=== PATIENT | female | born 1995 | race Caucasian/White ===

== ENCOUNTER 2019-08-20 18:32 | Inpatient (IN) ==
[2019-08-20] MEDS ORDERED: Ringers Solution, Lactated 1,000 ML ONE (18:57)
[2019-08-20] MEDS ORDERED: EPHEDrine 50 MG/ML VIAL IVP PRN (19:04)
[2019-08-20] MEDS ORDERED: Metoclopramide 10 MG/2 ML VIAL IVP PRN (19:05)
[2019-08-20] MEDS ORDERED: Lidocaine 1% 20 ML MDV INFILT PRN (19:05)
[2019-08-20] MEDS ORDERED: Famotidine 20 MG/2 ML VIAL IVP PRN (19:05)
[2019-08-20] MEDS ORDERED: Naloxone 0.4 MG/ML INJ IVP PRN (19:05)
[2019-08-20] MEDS ORDERED: *HR* FentaNYL (PF) 100 MCG/2 ML VIAL IVP PRN (19:05)
[2019-08-20] MEDS ORDERED: miSOPROStoL 25 MCG TABLET PO PRN (19:12)
[2019-08-20] MEDS ORDERED: Ringers Solution, Lactated 1,000 ML IVC SCH (19:15)
[2019-08-20] MEDS ORDERED: Epidural Premix (fent/bupiv) 110 ML EP SCH (19:15)
[2019-08-20 19:49] LABS: Basophils % 0.1 %; Eosinophils % 0.2 %; Hematocrit 41.3 % (35.3-44.9); Hemoglobin 13.8 g/dL (11.5-15.4); Immature Granulocytes % 0.6 % (0-4); Lymphocytes # 2.4 K/mcL (0.6-4.6); Lymphocytes % 14.2 %; Mean Corpuscular HGB Conc 33.4 g/dL (31.6-35.5); Mean Corpuscular Hemoglobin 30.9 pg (28.0-33.3); Mean Corpuscular Volume 92.4 fL (83.0-100.0); Mean Platelet Volume 11.5 fL (9.4-12.4); Monocytes # 0.7 K/mcL (0.0-1.3); Monocytes % 3.8 %; Neutrophils # 13.8 K/mcL (1.6-8.9); Platelet Count 230 K/mcL (140-400); Red Blood Count 4.47 M/mcL (3.82-4.97); Red Cell Distribution Width 12.5 % (11.5-14.5); Segmented Neutrophils % 81.1 %; White Blood Count 17.1 K/mcL (4.3-11.1)
[2019-08-20 19:58] LABS: Amphetamine Screen,Urine Negative ng/mL (Cutoff=1000); Barbiturate Screen,Urine Negative ng/mL (Cutoff=200); Benzodiazepines Screen,Urine Negative ng/mL (Cutoff=200); Cannabinoid Screen,Urine Positive ng/mL (Cutoff = 50); Cocaine Screen,Urine Negative ng/mL (Cutoff= 300); Opiate Screen,Urine Negative ng/mL (Cutoff=300); Phencyclidine Screen,Urine Negative ng/mL (Cutoff=25)
[2019-08-20] MEDS: Ondansetron 4 MG/2 ML VIAL IVP PRN (21:00)
[2019-08-21] MEDS: Ondansetron 4 MG/2 ML VIAL IVP PRN (02:26)
[2019-08-21] MEDS ORDERED: Oxytocin 20 units/ LR 1000 mL 20 UNIT/1,000 ML BAG IVC ONE ×2 (04:03→07:10)
[2019-08-21] MEDS ORDERED: Oxytocin 20 units/ LR 1000 mL 20 UNIT/1,000 ML BAG IVC SCH (07:10)
[2019-08-21] MEDS ORDERED: Acetaminophen 325 MG TABLET PO PRN (07:10)
[2019-08-21] MEDS ORDERED: Rho Immune Globulin 1,500 UNIT SYRINGE IM PRN (07:10)
[2019-08-21] MEDS ORDERED: Measles/Mumps/Rubella Vacc 0.5 ML VIAL SQ PRN (07:10)
[2019-08-21] MEDS: Ibuprofen 600 MG TABLET PO PRN ×2 (08:08→20:24)
[2019-08-21] MEDS: Prenatal Vit/FA 1 EACH TABLET PO SCH (08:09)
[2019-08-22 04:28] LABS: Basophils % 0.2 %; Eosinophils # 0.1 K/mcL (0.0-0.6); Eosinophils % 0.8 %; Hematocrit 36.5 % (35.3-44.9); Immature Granulocytes % 0.7 % (0-4); Lymphocytes # 3.4 K/mcL (0.6-4.6); Lymphocytes % 25.2 %; Mean Corpuscular HGB Conc 33.4 g/dL (31.6-35.5); Mean Corpuscular Hemoglobin 31.9 pg (28.0-33.3); Mean Corpuscular Volume 95.3 fL (83.0-100.0); Mean Platelet Volume 10.8 fL (9.4-12.4); Monocytes # 0.6 K/mcL (0.0-1.3); Monocytes % 4.6 %; Neutrophils # 9.2 K/mcL (1.6-8.9); Platelet Count 190 K/mcL (140-400); Red Blood Count 3.83 M/mcL (3.82-4.97); Red Cell Distribution Width 12.5 % (11.5-14.5); Segmented Neutrophils % 68.5 %; White Blood Count 13.4 K/mcL (4.3-11.1)
[2019-08-22 04:30] LABS: Hemoglobin 12.2 g/dL (11.5-15.4)
[2019-08-22] MEDS: Prenatal Vit/FA 1 EACH TABLET PO SCH (08:08)
[2019-08-22] MEDS: Ibuprofen 600 MG TABLET PO PRN (08:08)
[2019-08-22 08:35] VITALS: BP 131/87
== END 2019-08-22 10:40 | disposition home or self-care (01) | DRG 807 ==
LOC: 1NENULAB 18:32 → 1NENUOBS 08-21 06:53
PROVIDERS: ADMIT Obstetrics & Gynecology; ATTEND Obstetrics & Gynecology